=== PATIENT | female | born 1960 | race Caucasian/White ===

== ENCOUNTER 2016-05-30 22:43 | Emergency (ER) | payer OTHER ==
[~2016-05-30] VITALS: Ht 165.1 cm; Wt 87.4 kg
[2016-05-30 23:38] LABS: HEMATOCRIT 35.8 % (36.0-46.0); MCH 28.6 PG (29.0-34.0); MCHC 33.8 G/DL (30.0-36.0); MCV 84.6 FL (83-99); MEAN PLAT.VOLUME 9.4 uM^3 (9.5-12.4); PLATELET COUNT 147 K/uL (156-360); RBC DIS.WIDTH-CV 13.4 % (11.8-14.6); RBC DIS.WIDTH-SD 41.2 % (39-53); RED BLOOD COUNT 4.23 M/uL (3.80-5.20); WHITE BLOOD COUNT 3.5 K/uL (4.1-10.2)
[2016-05-30 23:46] LABS: CHLORIDE 105 mEq/L (99-109); POTASSIUM 3.6 mEq/L (3.7-5.4); SODIUM 140 mEq/L (136-147)
[2016-05-30 23:48] LABS: GLUCOSE 124 mg/dL (70-99)
[2016-05-30 23:49] LABS: ANION GAP 10 MEQ/L (2-14)
[2016-05-30 23:52] LABS: D-DIMER ELISA 0.25 mg/L FEU (< 0.57)
[2016-05-30 23:53] LABS: UREA NITROGEN (BUN) 16 mg/dL (9-23)
[2016-05-30 23:54] LABS: GFR ESTIMATE (CALCULATED) > 59 mL/min/
[2016-05-30 23:58] LABS: TROP-I INTERPRETATION NEGATIVE; TROPONIN-I < 0.01 ng/mL (0.0-0.30)
[2016-05-31 02:08] LABS: TROP-I INTERPRETATION NEGATIVE; TROPONIN-I < 0.01 ng/mL (0.0-0.30)
[2016-05-31] MEDS ORDERED: NAPROXEN500 MG PO (02:12)
[2016-05-31 03:00] VITALS: BP 165/90
== END 2016-05-31 03:30 ==
LOC: EME 22:43 → EDBD 22:43 → EME 05-31 03:30
PROVIDERS: Emergency Medicine
DX: S29.011A Strain of muscle and tendon of front wall of thorax, initial encounter (principal); R07.9 Chest pain, unspecified; E11.9 Type 2 diabetes mellitus without complications; E78.5 Hyperlipidemia, unspecified; I10 Essential (primary) hypertension; K21.9 Gastro-esophageal reflux disease without esophagitis; Z87.891 Personal history of nicotine dependence
CPT/HCPCS: 71010; 80048; 84484; 85027; 85379; 93005; 99281; 99285; J1885